=== PATIENT | female | born 1980 | race Caucasian/White ===

== ENCOUNTER 2022-07-17 09:53 | Outpatient (CLI) | payer OTHER ==
--- NOTE | 2022-07-18 12:51 | Mammography Report ---
BILATERAL DIGITAL SCREENING MAMMOGRAM 3D/2D WITH AUGMENTATION: 07/17/2022 CLINICAL: Routine screening. Comparison is made to exam dated: 11/02/2014 mammogram - [facility]. Both breasts are heterogeneously dense, which may obscure small masses (category c / 51-75% glandula r tissue). Bilateral subpectoral saline implants are stable and intact. There is an irregular equal density asymmetry in the left breast at 7 o'clock anterior depth. This i s increased in size. No other significant masses, calcifications, or other findings are seen in either breast. IMPRESSION: INCOMPLETE: NEEDS ADDITIONAL IMAGING EVALUATION The irregular equal density asymmetry in the left breast is indeterminate. Additional views with pos sible ultrasound are recommended. This exam was interpreted at Station ID: [id number]. NOTE: For mammograms, a report in lay terms will be sent to the patient. Approximately 15% of breast malignancies will not be visualized mammographically. In the management of a palpable breast mass, a negative mammogram must not discourage biopsy of a clinically suspicious lesion. Electronically Signed By: Joseline [email or web address]:07/17/2022 16:12:48 ACR BI-RADS Category 0: Incomplete 3340F PARENCHYMAL PATTERN: (D) - The breast(s) demonstrate(s) heterogeneously dense fibroglandular elsa smith. BI-RADS CATEGORY: (0) - 0 Mammo and [place] [id number] Immediate follow-up LATERALITY: (B)
== END 2022-07-17 09:54 | disposition home or self-care (01) ==
LOC: DI.N 09:53
DX: Z12.31 Encounter for screening mammogram for malignant neoplasm of breast (principal); R92.8 Other abnormal and inconclusive findings on diagnostic imaging of breast; Z98.82 Breast implant status

== ENCOUNTER 2022-07-30 08:55 | Outpatient (CLI) | payer OTHER ==
--- NOTE | 2022-07-31 11:30 | Mammography Report ---
UNILATERAL LEFT DIGITAL DIAGNOSTIC MAMMOGRAM 3D/2D: 07/30/2022 CLINICAL: Patient returns today to evaluate a focal asymmetry in the left breast. Comparison is made to exams dated: 07/17/2022 mammogram and 11/02/2014 mammogram - [facility]. The left breast is heterogeneously dense, which may obscure small masses (category c / 51-75% glandu lar tissue). Left subpectoral saline implant is stable and intact. There is a 0.3 cm oval equal density focal asymmetry with a circumscribed margin in the left breast a t 8 o'clock anterior depth. This is seen in additional views. This is increased in size. No other significant masses or calcifications are seen in the breast. IMPRESSION: INCOMPLETE: NEEDS ADDITIONAL IMAGING EVALUATION The 0.3 cm oval equal density focal asymmetry in the left breast is indeterminate. An ultrasound is recommended. This exam was interpreted at Station ID: [id number]. NOTE: For mammograms, a report in lay terms will be sent to the patient. Approximately 15% of breast malignancies will not be visualized mammographically. In the management of a palpable breast mass, a negative mammogram must not discourage biopsy of a clinically suspicious lesion. Electronically Signed By: Dilip [email or web address]/[email or web address]:07/30/2022 15:39:57 ACR BI-RADS Category 0: Incomplete 3340F PARENCHYMAL PATTERN: (D) - The breast(s) demonstrate(s) heterogeneously dense fibroglandular elsa smith. BI-RADS CATEGORY: (0) - 0 Ultrasound [id number] Immediate follow-up LATERALITY: (L)
--- NOTE | 2022-07-31 11:31 | Ultrasound Report ---
LIMITED ULTRASOUND OF LEFT BREAST: 07/30/2022 CLINICAL: Patient returns today to evaluate a focal asymmetry in the left breast. Comparison is made to exams dated: 07/30/2022 mammogram, 07/17/2022 mammogram, and 11/02/2014 mammogra - [facility]. Color flow ultrasound of the left breast 8 o'clock region was performed. Walsh scale images of the r eal-time examination were reviewed. There is a benign 0.3 cm x 0.4 cm x 0.3 cm oval cyst with a smooth internal wall in the left breast a t 8 o'clock anterior depth 5 cm from the nipple. This oval cyst is anechoic with posterior acoustic enhancement. This correlates with mammography findings. Color flow imaging demonstrates that there is no vascularity present. IMPRESSION: BENIGN There is no sonographic evidence of malignancy. The 0.3 cm x 0.4 cm x 0.3 cm oval cyst in the left breast is benign. Return to annual mammogram screening schedule is recommended. This exam was interpreted at Station ID: [id number]. Electronically Signed By: Dilip [email or web address]:07/30/2022 15:42:03 Ultrasound BI-RADS: 2 Benign BI-RADS CATEGORY: (2) - 2 Mammogram [id number] return to screening LATERALITY: (B)
== END 2022-07-30 08:56 | disposition home or self-care (01) ==
LOC: DI 08:55
PROVIDERS: ATTEND Family Medicine
DX: N60.02 Solitary cyst of left breast (principal)

== ENCOUNTER 2024-01-21 20:48 | Outpatient (CLI) | payer OTHER ==
--- NOTE | 2024-01-22 15:47 | Ultrasound Report ---
PROCEDURE: Pelvic Limited INDICATIONS: SOFT TISSUE MASS R INFERIOR SPINE TECHNIQUE: Real-time transabdominal scanning was performed of the lower back at area of palpable concern COMPARISON: None. FINDINGS: Air couple of concern within the right lower back demonstrate a focus of isoechoic echogenicity measu ring 1.1 x 0.9 x 1.2 cm. There is no increased vascularity. It is located approximately 1 cm below th e skin surface within the subcutaneous fat. IMPRESSION: Suspected lipoma. Reviewed by: Greta Brown MD on 01/22/2024 3:46 PM PDT Approved by: Greta Brown MD on 01/22/2024 3:46 PM PDT Station ID: [id number]
== END 2024-01-21 20:49 | disposition home or self-care (01) ==
LOC: DI 20:48
PROVIDERS: ATTEND Physician Assistant Medical
DX: R22.2 Localized swelling, mass and lump, trunk (principal)